=== PATIENT | male | born 1950 | race Hispanic/Latino ===

== ENCOUNTER 2016-11-02 11:39 | Emergency (ER) | payer OTHER ==
[~2016-11-02] VITALS: Ht 165.1 cm; Wt 70.3 kg
[~2016-11-02 11:39] MED LIST: MOBIC15 MG PO; NORCO 325 MG-51 TAB PO; TRAMADOL HCL50 M1 PO
--- NOTE | 2016-11-02 12:24 | ED EYE COMPLAINT ---
History of Present Illness General Chief Complaint: Eye Problems Stated Complaint: NO OCULAR MOTOR CONTROL, LT EYE Source: patient Exam Limitations: no limitations Vital Signs & Intake/Output Vital Signs & Intake/Output Vital Signs Date Time Temp Pulse Resp B/P Pulse O2 O2 Flow FiO2 Ox Delivery Rate 11/02 1409 98.0 75 18 169/85 99 Room Air 11/02 1144 98.1 84 20 168/80 99 Room Air Allergies Coded Allergies: NO KNOWN ALLERGIES (08/09/13) Triage Note: PT STATES HE LOST OCCULAR MOTOR CONTROL AND VISION IN LEFT EYE X 3 WEEKS. SAW AN EYE DOCTOR WHO SAID HE COULDN'T HELP HIM Triage Nurses Notes Reviewed? yes Onset: Gradual Duration: week(s): (3) Timing: no prior history Injury Environment: home Severity: severe Severity Numbers: 8 No Modifying Factors: none Right Eye Associated Symptoms: none HPI: Patient is a 66-year-old male presenting to the emergency department with chief complaint of blurred vision, intermittent pain over the left eye as well as his eyelid being droopy and unable to move his eye properly for the past 2-3 weeks. He saw an mechanical energy engineer prior to onset of symptoms and had a full eye exam, received new eyeglasses. Symptoms started about a week after seeing the mechanical energy engineer. Patient denying history of similar symptoms. No rashes. Denies taking anything to help with symptoms. He also reports headaches behind the left eye. No head trauma or falls. Denies confusion. (MACARENA LUKE) Past History Travel History Traveled to [place] past 21 day No Medical History Any Pertinent Medical History? see below for history Cardiovascular: HYPERTENSION Surgical History Surgical History: none Psychosocial History What is your primary language Emir[place] Tobacco Use: Quit >30 days ago Family History Hx Contributory? No (MACARENA LUKE) Review of Systems Review of Systems Constitutional: Reports: no symptoms. Comments Review of systems: See HPI, All other systems negative. Constitutional, no chills fever or weight loss HEENT: no sore throat no congestion Cardiovascular: No chest pain ,palpitation , orthopnea or ankle swelling Skin, no jaundice no rashes Respiratory: No dyspnea cough sputum or hemoptysis GI: No nausea no vomiting : No dysuria No hematuria Muscle skeletal: no back pain, no neck pain, Neurologic: No numbness no confusion Psych: No stress anxiety or depression,. Heme/endocrine: No bruising no bleeding no polyuria or polydipsia Immunology: No splenectomy or history of AIDS (MACARENA LUKE) Physical Exam General Appearance: well developed/nourished, no apparent distress, alert, awake , comfortable General Inspection: down out gaze Eyelid: pstosis of left lid Conjunctiva/Sclera: normal inspection Cornea: normal inspection EOM: palsy (cant cross lateral gaze to rig) Pupil: normal accommodation, PERRL, slightly larger pupil compared to right eye Anterior Chamber: normal inspection General Inspection: normal inspection Eyelid: normal inspection Conjunctiva/Sclera: normal inspection Cornea: normal inspection EOM: intact Pupil: normal accommodation, normal pupil, PERRL Anterior Chamber: normal inspection Posterior Segments: normal funduscopic (limited due to no dilation) Physical Exam Head: atraumatic, normal appearance Comments: Well-developed well-nourished person in no acute distress HEENT: Extraocular eye movements intact on the right eye. Pupils round and reactive to light and accommodation. Right pupil is slightly larger than left pupil, both react and accommodate to light bilaterally. Unable to adduct, look upward or downward with the left eye. Left eye rests and it down and all physician. Nose is atraumatic. External auditory canal and Tympanic membranes clear. Pharynx normal. No swelling or edema. Neck: Supple, no lymphadenopathy, normal range of motion without pain or tenderness Cardiovascular: Regular rate and rhythms no murmurs rubs or gallops, normal JVP Respiratory: Chest nontender. No respiratory distress.breath sounds clear to auscultation bilaterally Extremity: No edema Neuro: Alert oriented x3, motor sensory normal, cranial nerves II through XII grossly intact, except for cranial nerve III with ptosis of the left lid and oculomotor of cranial 3. Skin: No appreciable rash on exposed skin, skin is warm and dry. Psych: Mood and affect is normal, memory and judgment is normal. (MACARENA LUKE) Progress Differential Diagnosis: intracranial hemorrhage, cranial nerve III palsy, intracranial lesion Plan of Care: Orders Procedure Date/time Status Add-on Test (ER Only) 11/02 1414 Active TSH REFLEX 11/02 1235 Active FingerStick- Glucose 11/02 1217 Active COMPREHENSIVE METABOLIC PANEL 11/02 1217 Active CBC WITHOUT DIFFERENTIAL 11/02 1217 Complete Laboratory Tests 11/02/16 1235: Anion Gap 12, Estimated GFR > 60, BUN/Creatinine Ratio 16.3, Glucose 316 H, Calcium 10.1, Total Bilirubin 0.7, AST 12 L, ALT 23, Alkaline Phosphatase 119, Total Protein 7.7, Albumin 4.4, Globulin 3.3, Albumin/Globulin Ratio 1.3, TSH & T3 &Free T4 Intrp Pending, CBC w Diff NO MAN DIFF REQ, RBC 4.89, MCV 85.3, MCH 28.4, RDW 13.8, MPV 8.3, Gran % 70.3, Lymphocytes % 22.6, Monocytes % 5.5, Eosinophils % 1.0, Basophils % 0.6, Absolute Granulocytes 5.3, Absolute Lymphocytes 1.7, Absolute Monocytes 0.4, Absolute Eosinophils 0.1, Absolute Basophils 0, PUBS MCHC 33.3 Diagnostic Imaging: Viewed by Me: CT Scan. Discussed w/RAD: CT Scan. Radiology Impression: PATIENT: LAITH GARCIA PRESENT AGE: 66 PATIENT ACCOUNT NO: [id number] : 52 LOCATION: [facility] ORDERING PHYSICIAN: MACARENA GUDINO SERVICE DATE: 11/02/16 EXAM TYPE: CAT - CT HEAD W&WO IV CONTRAST EXAMINATION: CT HEAD WITHOUT AND WITH CONTRAST CLINICAL INFORMATION: 66-year-old man with left sided ptosis. COMPARISON: None TECHNIQUE: Contiguous axial imaging was performed from the skull base to vertex before and after the administration of 95 mL of Optiray 320 intravenous contrast. DLP: 1201 mGy-cm FINDINGS: There is no evidence of acute intracranial hemorrhage or territorial infarction. No abnormal mass effect or midline shift is seen. Arce to white matter differentiation is well preserved. No extra-axial fluid collections are identified. There is no abnormal enhancement. The ventricles are normal in size. There is no abnormal attenuation within the brain parenchyma. Superficial soft tissue infiltration and skin thickening in the occipital region suggests chronic inflammation. The mastoid air cells and visualized portions of the paranasal sinuses are well aerated. IMPRESSION: No acute intracranial pathology. DICTATED BY: ESTELA ARGUETA MD DATE/ TIME DICTATED:11/02/161407 ADMISSIONS CLINICIAN:BARRIE DATE/TIME TRANSCRIBED: 11/02/161407 CONFIDENTIAL, DO NOT COPY WITHOUT APPROPRIATE AUTHORIZATION. < Electronically signed in Other Vendor System> SIGNED BY: ESTELA ARGUETA MD 02/11 1414 Comments: Patient likely has cranial nerve III palsy, etiology unclear at this time. CT with and without contrast is unremarkable. Patient will need MRI. He'll follow with ophthalmology. He has an appointment with his primary care physician tomorrow. Patient nontoxic. He will continue pain medication previously prescribed. 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 He will need an MRI to further investigate your cranial nerve III palsy. Departure Forms: Customer Survey General Discharge Information (MACARENA LUKE) PA/BOARD OF DIRECTORS Co-Sign Statement Statement: ED Attending supervision documentation- [] I saw and evaluated the patient. I have also reviewed all the pertinent lab results and diagnostic results. I agree with the findings and the plan of care as documented in the PA's/BOARD OF DIRECTORS's documentation. [X] I have reviewed the ED Record and agree with the PA's/BOARD OF DIRECTORS's documentation. [] Additions or exceptions (if any) to the PAs/BOARD OF DIRECTORS's note and plan are summarized below: [] (NATALIE WADE,CRYSTAL)
[2016-11-02 12:57] LABS: ABSOLUTE BASOPHIL COUNT 0 /CUMM (0.0-0.2); ABSOLUTE EOSINOPHIL COUNT 0.1 /CUMM (0.0-0.7); ABSOLUTE GRANULOCYTE CT 5.3 /CUMM (1.4-6.5); ABSOLUTE LYMPH COUNT 1.7 /CUMM (1.2-3.4); ABSOLUTE MONOCYTE COUNT 0.4 /CUMM (0.10-0.60); BASOPHIL % 0.6 % (0.0-2.0); GRANULOCYTE % 70.3 % (42.2-75.2); HEMATOCRIT 41.7 % (42-52); MEAN CORPUSCULAR HGB 28.4 PG (27.0-31.0); MEAN CORPUSCULAR HGB CONC 33.3 G/DL (33.0-37.0); MEAN CORPUSCULAR VOLUME 85.3 FL (80.0-94.0); MEAN PLATELET VOLUME 8.3 FL (7.4-10.4); PLATELET COUNT 307 /CUMM (130-400); RBC DISTRIBUTION WIDTH 13.8 % (11.5-14.5); RED BLOOD CELL CT 4.89 /CUMM (4.70-6.10); WHITE BLOOD CELL COUNT 7.5 /CUMM (4.8-10.8)
[2016-11-02 14:09] VITALS: BP 169/85
--- NOTE | 2016-11-02 14:14 | CT SCAN REPORT ---
EXAMINATION: CT HEAD WITHOUT AND WITH CONTRAST CLINICAL INFORMATION: 66-year-old man with left sided ptosis. COMPARISON: None TECHNIQUE: Contiguous axial imaging was performed from the skull base to vertex before and after the administration of 95 mL of Optiray 320 intravenous contrast. DLP: 1201 mGy-cm FINDINGS: There is no evidence of acute intracranial hemorrhage or territorial infarction. No abnormal mass effect or midline shift is seen. Arce to white matter differentiation is well preserved. No extra-axial fluid collections are identified. There is no abnormal enhancement. The ventricles are normal in size. There is no abnormal attenuation within the brain parenchyma. Superficial soft tissue infiltration and skin thickening in the occipital region suggests chronic inflammation. The mastoid air cells and visualized portions of the paranasal sinuses are well aerated. IMPRESSION: No acute intracranial pathology.
[2016-11-02] MEDS ORDERED: TRAMADOL HCL50 M1 PO (14:37)
== END 2016-11-02 14:45 ==
LOC: ERH 11:39
PROVIDERS: Physician Assistant
DX: H49.02 Third [oculomotor] nerve palsy, left eye (principal)

== ENCOUNTER 2018-04-03 07:48 | Emergency (ER) | payer OTHER, MEDICARE ==
[~2018-04-03] VITALS: Ht 165.1 cm; Wt 74.8 kg
[2018-04-03 07:55] VITALS: BP 137/81
--- NOTE | 2018-04-03 08:33 | ED HAND/WRIST INJURY COMPLAINT ---
History of Present Illness General Chief Complaint: Laceration Procedure Stated Complaint: LAC TO LFT HAND RING FINGER Source: patient, old records Exam Limitations: no limitations Vital Signs & Intake/Output Vital Signs & Intake/Output Vital Signs Date Time Temp Pulse Resp B/P B/P Pulse O2 O2 Flow FiO2 Mean Ox Delivery Rate 04/03 0841 97 Room Air Room Air 04/03 0755 97.0 75 20 137/81 98 Room Air Allergies Coded Allergies: NO KNOWN ALLERGIES (08/09/13) Triage Note: SCREWDRIVER VS LEFT RING FINGER. NO BLEEDING NOTED Triage Nurses Notes Reviewed? yes Occurred: this evening Duration: hour(s):, constant, continues in ED Timing: recent history Injury Environment: home Severity: moderate Pain/Injury Location: Left: 4th finger. 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 The screwdriver slipped and punctured the medial aspect of his fourth middle finger. He is right-hand dominant. He denies other injury fever chills nausea vomiting diarrhea abdominal pain chest pain shortness breath headache dysuria rash. Past History Travel History Traveled to [place] past 21 day No Medical History Any Pertinent Medical History? see below for history Cardiovascular: HYPERTENSION Endocrine: diabetes Surgical History Surgical History: none Psychosocial History What is your primary language Bengali Tobacco Use: Never used ETOH Use: denies use Illicit Drug Use: denies illicit drug use Family History Hx Contributory? No Review of Systems Review of Systems Constitutional: Reports: no symptoms. EENTM: Reports: no symptoms. Respiratory: Reports: no symptoms. Cardiovascular: Reports: no symptoms. GI: Reports: no symptoms. Genitourinary: Reports: no symptoms. Musculoskeletal: Reports: no symptoms. Skin: Reports: no symptoms. Neurological/Psychological: Reports: no symptoms. Hematologic/Endocrine: Reports: no symptoms. Immunologic/Allergic: Reports: no symptoms. All Other Systems: Reviewed and Negative Physical Exam Physical Exam General Appearance: well developed/nourished, alert, awake, anxious, comfortable Head: atraumatic, normal appearance Eyes: Bilateral: normal appearance, PERRL, EOMI. Ears, Nose, Throat: normal pharynx, normal ENT inspection, hearing grossly normal Neck: normal inspection, supple, full range of motion, no midline tenderness Cardiovascular/Respiratory: normal breath sounds, regular rate/rhythm Back: normal inspection, normal range of motion, no vertebral tenderness Shoulder Left: normal range of motion, normal inspection Shoulder Right: normal range of motion, normal inspection Elbow Left: normal range of motion, normal inspection Elbow Right: normal range of motion, normal inspection Forearm Left: normal range of motion, normal inspection Forearm Right: normal range of motion, normal inspection Wrist Left: normal range of motion, normal inspection Wrist Right: normal range of motion, normal inspection Hand Left: normal range of motion, deformity, lacerations, 4th finger Hand Right: normal inspection, normal range of motion Reflexes: 2+: bicep (R), bicep (L). Neurologic/Tendon: normal sensation, normal motor functions, normal tendon functions Skin: normal color, warm/dry Lymphatic: no anterior cervical pita Progress Differential Diagnosis: laceration Plan of Care: Wound repair debridement Departure Departure Time of Disposition: 829 Disposition: HOME OR SELF CARE Condition: Stable Clinical Impression Primary Impression: Laceration of left ring finger Referrals: Devyn Landis MD (PCP/Family) Additional Instructions: Suture removal 7-10 days. Use splint to protect sutures. Departure Forms: Customer Survey General Discharge Information Procedures Laceration/Wound Repair Laceration/Wound Repair: Wound Location: lower extremity (left fourth finger) Wound's Depth, Shape: contused tissue, irregular Wound Length (cm): 3 Wound Explored: no foreign body removed Irrigated w/ Saline (ccs): 250 Betadine Prep? No Anesthesia: 1% lidocaine Volume Anesthetic (ccs): 3 Wound Debrided: minimal Wound Repaired With: sutures Suture Size/Type: 5:0, nylon Number of Sutures: 2 Layer Closure? No Sterile Dressing Applied: Yes Splint Applied? Yes By Who? by tech Type of Splint Applied: finger Sling Applied? No Tetanus Status: up to date
== END 2018-04-03 08:42 ==
LOC: ERH 07:48
DX: S61.215A Laceration without foreign body of left ring finger without damage to nail, initial encounter (principal); W29.8XXA Contact with other powered hand tools and household machinery, initial encounter
CPT/HCPCS: J2001

== ENCOUNTER 2018-04-06 09:48 | Emergency (ER) | payer OTHER, MEDICARE ==
[~2018-04-06] VITALS: Ht 165.1 cm; Wt 74.8 kg
[2018-04-06 09:52] VITALS: BP 168/78
[2018-04-06] MEDS ORDERED: KEFLEX500 M1 PO (10:41)
--- NOTE | 2018-04-06 10:42 | ED SKIN/ALLERGY COMPLAINT ---
History of Present Illness General Chief Complaint: Suture Removal/Wound Recheck Stated Complaint: INFECTED WOUND Source: patient, old records Exam Limitations: no limitations Vital Signs & Intake/Output Vital Signs & Intake/Output Vital Signs Date Time Temp Pulse Resp B/P B/P Pulse O2 O2 Flow FiO2 Mean Ox Delivery Rate 04/06 0952 99.1 82 20 168/78 98 Room Air Allergies Coded Allergies: NO KNOWN ALLERGIES (08/09/13) Reconcile Medications Cephalexin (Keflex) 500 MG CAPSULE 1 CAP PO TID CELLULITIS Triage Note: PT TO ED FOR INFECTED SUTURES TO LEFT RING FINGER. HAD SUTURES PLACED HERE 04/03, STATES ON THURSDAY HE NOTICED REDNESS WITH WHITE DISCHARGE. Triage Nurses Notes Reviewed? yes Onset: Gradual Duration: day(s): Timing: recent history Severity: moderate Location: extremities HPI: 68-year-old male presents emergency department complaining of infected wound. Patient states he was seen 2 days ago for laceration to left ring finger. Patient had 2 stitches placed at that time. Patient states that he had gradual swelling, redness, pain around wound. Patient states that if he presses on the nearby skin he will express purulent discharge. Patient denies fevers, chills, vomiting. (Estefany Cartagena) Past History Travel History Traveled to [place] past 21 day No Medical History Any Pertinent Medical History? see below for history Cardiovascular: HYPERTENSION Endocrine: diabetes Surgical History Surgical History: none Psychosocial History What is your primary language Turkish Tobacco Use: Never used ETOH Use: denies use Illicit Drug Use: denies illicit drug use Family History Hx Contributory? No (Estefany Cartagena) Review of Systems Review of Systems Constitutional: Reports: no symptoms. EENTM: Reports: no symptoms. Respiratory: Reports: no symptoms. Cardiovascular: Reports: no symptoms. GI: Reports: no symptoms. Genitourinary: Reports: no symptoms. Musculoskeletal: Reports: no symptoms. Skin: Reports: see HPI. Neurological/Psychological: Reports: no symptoms. Hematologic/Endocrine: Reports: no symptoms. Immunologic/Allergic: Reports: no symptoms. All Other Systems: Reviewed and Negative (Estefany Cartagena) Physical Exam Physical Exam General Appearance: well developed/nourished, no apparent distress, alert, awake Head: atraumatic, normal appearance Eyes: Bilateral: normal appearance. Ears, Nose, Throat: hearing grossly normal Neck: normal inspection, supple, full range of motion Respiratory: no respiratory distress Extremities: cLOSED LACERATION WITH SUTURES PRESENT TO LEFT RING FINGER WITH SURROUNDING ERYTHEMA, WARMTH, TENDERNESS APPROXIMATELY 2 CM, RANGE OF MOTION AT THE FINGERS IS INTACT Neurologic/Psych: awake, alert, oriented x 3 Skin: SEE ERYTHEMA OF LEFT RING FINGER DESCRIBED ABOVE (Estefany Cartagena) Progress Differential Diagnosis: abscess/cellulitis, allergic reaction, ABSCESS, TENOSYNOVITIS Plan of Care: Patient has small area of cellulitis surrounding his wound that was sutured 2 days ago. His range of motion is intact, no evidence of flexor tenosynovitis at this time. Patient to begin Keflex antibiotics and apply bacitracin topically. He was given strict return precautions for worsening infection. Otherwise he will return in 5-7 days for removal of stitches. (Estefany Cartagena) Departure Departure Disposition: HOME OR SELF CARE Condition: Stable Clinical Impression Primary Impression: Cellulitis Qualifiers: Site of cellulitis: extremity Site of cellulitis of extremity: finger Laterality: left Qualified Code: L03.012 - Cellulitis of left finger Referrals: Devyn Landis MD (PCP/Family) Additional Instructions: Apply bacitracin cream topically over wound. Begin antibiotics today, take full course of antibiotics. Return in 5-7 days for removal of stitches. Return sooner if worsening redness, swelling, pain. Please note that there might be incidental findings in your evaluation that are unrelated to the current emergency department visit. Please notify your primary care doctor about this emergency department visit in order to obtain and review all of the testing performed so that these incidental findings can be monitored as needed. If you had an x-ray performed, please understand that some fractures may not be seen on the initial set of x-rays. If your symptoms persist you might need a repeat set of x-rays to check for such a fracture. If you had a laceration evaluated, please understand that foreign bodies such as glass or wood may not be visible to the naked eye or on plain x-rays. If the wound becomes red, swollen, increasingly more painful or if there is any drainage from the wound, please have it reevaluated by a physician for the possibility of a retained foreign body. If you're unable to follow up as outlined in the discharge instructions please return to the emergency department. Thank you for choosing the [facility] Emergency Department for your care. It was a pleasure to serve you today. Departure Forms: Customer Survey General Discharge Information Prescriptions: Current Visit Scripts Cephalexin (Keflex) 1 CAP PO TID #21 CAP (Cristina GUDINO,Estefany Rodriguez) PA/ACCOUNT GROUP SUPERVISOR Co-Sign Statement Statement: ED Attending supervision documentation- x I saw and evaluated the patient. I have also reviewed all the pertinent lab results and diagnostic results. I agree with the findings and the plan of care as documented in the PA's/ACCOUNT GROUP SUPERVISOR's documentation. [] I have reviewed the ED Record and agree with the PA's/ACCOUNT GROUP SUPERVISOR's documentation. [] Additions or exceptions (if any) to the PAs/ACCOUNT GROUP SUPERVISOR's note and plan are summarized below: [] (Tayla WADE,Massimo)
== END 2018-04-06 10:43 ==
LOC: ERH 09:48
DX: L03.012 Cellulitis of left finger (principal)